=== PATIENT | male | born 1975 | race Caucasian/White ===

== ENCOUNTER 2021-01-14 19:20 | Emergency (ER) | payer BC ==
[2021-01-14 20:57] LABS: HEMOGLOBIN 15.3 gm/dl (14.0-17.5); RED BLOOD COUNT 5.34 M/UL (4.20-5.50); WHITE BLOOD COUNT 11.8 K/UL (4.5-11.0)
[2021-01-14 21:23] LABS: BUN/CREATININE RATIO 15 (0-10)
[2021-01-15] MEDS ORDERED: ASPIRIN CHEWABL81 MG PO (00:40)
== END 2021-01-15 01:02 | disposition home or self-care (01) ==
LOC: ER1 19:20
PROVIDERS: Physician Assistant Medical
DX: R07.9 Chest pain, unspecified (principal); K21.9 Gastro-esophageal reflux disease without esophagitis; Z79.82 Long term (current) use of aspirin
CPT/HCPCS: 71045; 80053; 82550; 82553; 83874; 84484; 85025; 93005; 99285

== ENCOUNTER → 2021-01-26 | Outpatient (CLI) | payer BC ==
[~2021-01-26] MED LIST: ASPIRIN CHEWABL81 MG PO
== END ==
LOC: ECHO 12:49
DX: R94.31 Abnormal electrocardiogram [ECG] [EKG] (principal)
CPT/HCPCS: ECHO; 93306

== ENCOUNTER → 2021-03-09 | Outpatient (CLI) | payer BC | LOC: LAB 06:09 | DX: Z01.83 Encounter for blood typing (principal) | CPT/HCPCS: 36415; 86900; 86901 ==